=== PATIENT | male | born 1940 | race Caucasian/White ===

== ENCOUNTER → 2018-09-09 | Outpatient (CLI) | payer MEDICARE, BC ==
[~2018-09-09] MED LIST: AMIO200; AMIODARONE; AMIODARONE HCL; AMIODORONE; ASPI325; CYCL10 PO; EZET10-20; HYDACE5 PO; ISODIN20 PO; Isosorbide Dini30 MG; LEVSOD50; LISI20; NAPR550 PO; NITR.6SL SL; OMEP20ER; RISE35; SERT50; SIMV40; TAMS.4ER; [UNRECOGNIZED DRUG - OTHER]
== END | disposition home or self-care (01) ==
LOC: PLD 13:48 → LAB SHORT 13:48
DX: D48.5 Neoplasm of uncertain behavior of skin (principal)
CPT/HCPCS: 88305

== ENCOUNTER 2022-11-22 16:36 | Inpatient (IN) | payer MEDICARE, BC ==
[~2022-11-22] VITALS: Ht 175.3 cm; Wt 80.2 kg
[~2022-11-22 16:36] MED LIST changes: +ASPI81CH PO; +ATOR80 PO; +Amiodarone HCl200 MG PO; +EUTHYROX50 MCG PO; +FURO40 PO; -LEVSOD50; +POTA10T PO
[2022-11-22 16:57] LABS: BASOPHILS ABSOLUTE AUTO 0.03 K/mm3 (0.00-0.23); BASOPHILS PERCENT AUTO 0 % (0-2); EOSINOPHILS PERCENT AUTO 0 % (0-6); Hematocrit 34.4 % (37.0-53.0); Hemoglobin 11.4 g/dL (13.5-17.5); IMMATURE GRAN ABSOLUTE AUTO 0.03 K/mm3 (0.00-0.10); IMMATURE GRAN PERCENT AUTO 0 % (0-1); LYMPHOCYTES ABSOLUTE AUTO 0.77 K/mm3 (0.84-5.20); LYMPHOCYTES PERCENT AUTO 7 % (21-46); MONOCYTES PERCENT AUTO 5 % (4-13); Mean Corpuscular HGB 30.7 pg (26.0-34.0); Mean Corpuscular HGB Conc 33.1 g/dL (31.5-36.5); Mean Corpuscular Volume 93 fL (80-100); Mean Platelet Volume 10.5 fL (9.1-12.4); NEUTROPHILS ABSOLUTE AUTO 9.38 K/mm3 (1.96-9.15); NEUTROPHILS PERCENT AUTO 88 % (41-73); Platelet Count 290 K/mm3 (150-400); RDW Coefficient Variation 14.1 % (11.7-14.2); RDW Standard Deviation 47.6 fL (35.1-46.3); Red Blood Cell Count 3.71 M/mm3 (4.30-5.90); White Blood Cell Count 10.71 K/mm3 (4.00-11.30)
[2022-11-22 17:23] LABS: Albumin, Blood 2.9 g/dL (3.4-5.0); Albumin/Globulin Ratio 0.6 (0.8-1.8); Bilirubin, Total 0.9 mg/dL (0.1-1.0); Bun/Creatinine Ratio 26.7 (12.0-20.0); Calcium, Blood 8.6 mg/dL (8.5-10.1); Creatinine, Blood 1.76 mg/dL (0.60-1.20); Globulin, Blood 4.9 g/dL (2.2-4.0); Potassium, Blood 3.9 mmol/L (3.5-5.5); Total Protein, Blood 7.8 g/dL (6.4-8.2)
[2022-11-22 18:37] LABS: Source, Urine Voided
[2022-11-22 18:40] LABS: Appearance, Urine Cloudy (Clear); Bilirubin, Urine Neg (Neg); Blood, Urine 4+ (Neg); Color, Urine Yellow (P-Yellow); Glucose Qualitative, Urine Neg (Neg); Ketones, Urine Neg (Neg); Leukocyte Esterase, Urine 3+ (Neg); Nitrite, Urine Pos (Neg); Protein, Urine 3+ (Neg); Specific Gravity, Urine 1.015 (1.003-1.022); Urobilinogen, Urine NORM (Normal)
[2022-11-22 18:47] LABS: White Blood Cells, Urine 50-100 /hpf (0-5)
[2022-11-22 18:48] LABS: Bacteria Many /hpf; Squamous Epithelial Cells Not Seen /hpf (Few)
--- NOTE | 2022-11-22 23:30 | NUR ---
PATIENT IS A NEW ADMIT FROM THE ED. AXOX 4 AND THREE PERSON TRANSFER FROM [facility] TO BED. REPORTED WEAK LAST FEW DAYS AND GOT OVER COVID-19 A FEW WEEKS AGO TESTING NEGATIVE. BEDREST. SPOUSE AND DAUGHTER PRESENT ON ADMIT AND STAYED FOR AN HOUR. NAUSEOUS IN ROOM AND IV ZOFRAN GIVEN WITH GOOD EFFECT. DENIES CHEST PAIN AND SOB. ON ROOM AIR. NS STARTED @ 75 mL/HR X ONE BAG. ORIENTED TO ROOM AND CALL LIGHT SYSTEM. REPORTED WANTED TO SLEEP AFTER ASSESSMENT. WCTM.
--- NOTE | 2022-11-23 04:17 | NUR ---
PATIENT HAD LOW GRADE TEMP 99.7 ON ADMIT AND ELEVATED TO 101.2 AND TYLENOL 500 MG GIVEN; 100.4 ON RECHECK. AXOX 4 AND BEDREST. PIV REMAINS INTACT. NS INFUSING AT 75 mL/HR X ONE BAG. DENIES PAIN AND SOB. NAUSEOUS ON ADMIT AND IV ZOFRAN GIVEN WITH GOOD EFFECT. COOPERATIVE WITH CARE. CALL LIGHT IN REACH. BED IN LOWEST POSITION AND ALARM ACTIVATED. WILL CONTINUE TO MONITOR UNTIL DAY SHIFT NURSE ASSUMES CARE.
[2022-11-23 05:35] LABS: BASOPHILS ABSOLUTE AUTO 0.03 K/mm3 (0.00-0.23); BASOPHILS PERCENT AUTO 0 % (0-2); EOSINOPHILS ABSOLUTE AUTO 0.01 K/mm3 (0.00-0.68); EOSINOPHILS PERCENT AUTO 0 % (0-6); Hematocrit 31.5 % (37.0-53.0); Hemoglobin 10.4 g/dL (13.5-17.5); IMMATURE GRAN ABSOLUTE AUTO 0.05 K/mm3 (0.00-0.10); IMMATURE GRAN PERCENT AUTO 1 % (0-1); LYMPHOCYTES PERCENT AUTO 10 % (21-46); MONOCYTES ABSOLUTE AUTO 1.08 K/mm3 (0.16-1.47); MONOCYTES PERCENT AUTO 10 % (4-13); Mean Corpuscular HGB 30.3 pg (26.0-34.0); Mean Corpuscular Volume 92 fL (80-100); Mean Platelet Volume 10.9 fL (9.1-12.4); NEUTROPHILS ABSOLUTE AUTO 8.82 K/mm3 (1.96-9.15); NEUTROPHILS PERCENT AUTO 80 % (41-73); Platelet Count 262 K/mm3 (150-400); RDW Coefficient Variation 13.9 % (11.7-14.2); Red Blood Cell Count 3.43 M/mm3 (4.30-5.90); White Blood Cell Count 11.09 K/mm3 (4.00-11.30)
[2022-11-23 06:15] LABS: Albumin, Blood 2.4 g/dL (3.4-5.0); Anion Gap 6 mmol/L (6-16); Blood Urea Nitrogen 40 mg/dL (8-24); Bun/Creatinine Ratio 28.6 (12.0-20.0); CO2, Blood 23 mmol/L (21-32); Calcium, Blood 7.9 mg/dL (8.5-10.1); Chloride, Blood 105 mmol/L (98-108); Glomerular Filtration Rate 50 (60-); Glucose, Blood 130 mg/dL (70-99); Magnesium, Blood 2.1 mg/dL (1.6-2.4); Phosphorus, Blood 3.1 mg/dL (2.5-4.9); Potassium, Blood 3.9 mmol/L (3.5-5.5); Sodium, Blood 134 mmol/L (136-145); Thyroxine (T4) 13.8 ug/dL (4.5-12.1)
--- NOTE | 2022-11-23 09:00 | NUR ---
pt laying in bed with family at bedside, states he's cold, warm blanket given and turned heat up, pt is a/ox3, pleasant and cooperative with care, lungs are clear dim in bases, on r/a, no cough noted, he reports occ regular phlem, clear, hrr, very distant, no edema noted, ppp+1, cap refill <3sec, vs stable, afebrile, iv site is clear and patent, btx4, abd flat soft nontender, having diff voiding, skin c/w/d, maew, sarai, call light in reach.
--- NOTE | 2022-11-23 10:15 | NUR ---
bladder scanned pt with result of 920mls, did in and out cath drained 900mls turbulant, urine, good amount of white colored urine with strong odor, pt tolerated well, call light in reach.
--- NOTE | 2022-11-23 18:17 | NUR ---
pt having renal u/s, straight cathed him, drained 400mls, not as turbid as this mornings. no further changes, call light in reach.
--- NOTE | 2022-11-24 00:07 | NUR ---
BLADDER SCAN 480 mL WITH 500 mL STRAIGHT CATH OUT. TOLERATED WELL. WCTM.
--- NOTE | 2022-11-24 04:14 | NUR ---
SHIFT SUMMARY PATIENT TEMP 98.1 AT START OF SHIFT AND NOW 100.9, TYLENOL 500 MG GIVEN. AXOX 4 AND INDEPENDENT IN ROOM. DENIES CHEST PAIN, SOB, AND N/V. PIV REMAINS INTACT. IV ABX INFUSED. SLEPT MOST OF SHIFT. CALL LIGHT IN REACH. BED IN LOWEST POSITION. WILL CONTINUE TO MONITOR UNTIL DAY SHIFT NURSE ASSUMES CARE.
--- NOTE | 2022-11-24 05:06 | NUR ---
TEMP 100.9 AND TYLENOL 500 MG GIVEN. TEMP 97.5 ON RECHECK. WCTM
--- NOTE | 2022-11-24 06:33 | NUR ---
BLADDER SCAN 372 mL AND STRAIGHT CATH 375 mL MILD DARK YELLOW URINE.
[2022-11-24] MEDS ORDERED: LISI5 PO (16:52)
[2022-11-24] MEDS ORDERED: Acetaminophen650 M1 PO (16:53)
[2022-11-24] MEDS ORDERED: MIRALAX17 GM PO (16:54)
[2022-11-24] MEDS ORDERED: LACT PO (16:54)
[2022-11-24] MEDS ORDERED: TAMS.4ER PO (16:54)
[2022-11-24] MEDS ORDERED: THERA-D2000 UNIT PO (16:54)
[2022-11-24] MEDS ORDERED: CEFP200 PO (16:55)
--- NOTE | 2022-11-24 18:22 | NUR ---
DDISCHARGE NOTE- PT AND FAMILY WERE GIVEN VERBAL AND WRITTEN DISCHARGE INSTRUCTIONS AND ACKNOWLEDGED UNDERSTANDING OF THEM. PRIOR TO DISCHARGEE THE PT WAS ABLE TO DEMONSTRATE PROPER SELF CATH TECHNIQUE BY PPERFORMING HIS OWN SELF CATH AFTER BLADDER SCAN. PT WAS DISCHARGED HOME WITH HOME HEALTH AND HOME HEALTH SHOULD BE OUT FOR ADMISSION ON SUNDAY. PT IV WAS DC'D PRIOR TO DISCHARGE. PER DISCHARGE INSTRUCTIONS THE PT WAS REFERRED TO [facility] IN [facility]. THE PT AND FAMILY ARE AWARE OF THE CONSULT. THIS RN CALLED THE OFFICE AND THEY REQUESTED INFORMATION FAXED TO THEIR OFFICE. [employer] FAXED THE PT INFO NEEDED FOR THE REFERRAL. THIS RN WAS INSTRUCTED TO TELL THE PT IF THEY HAVE NOT RECIEVED A CALL ON SUNDAY THEY SHOULD CALL ON SUNDAY TO GET SCHEDULED. PROVIDED THE PHONE NUMBER FOR THE PT AND FAMILY TO CALL IF THEY ARENT CONTACTED. PT WAS TAKEN VIA WC ESCORT TO THE PT ENTRANCE, NO S&S OF DISTRESS NOTED AT THE TIME OF DISCHARGE.
== END 2022-11-24 17:59 | disposition hospice, inpatient (51) | DRG 690 ==
LOC: ER 16:36 → MEDS 20:07
PROVIDERS: Emergency Medicine; ADMIT Internal Medicine
PROC: 0T9B70Z Drainage of Bladder with Drainage Device, Via Natural or Artificial Opening (ICD-10-PCS; principal; 2022-11-22)
DX: N13.6 Pyonephrosis (principal); I47.20 Ventricular tachycardia, unspecified; N13.8 Other obstructive and reflux uropathy; N40.1 Benign prostatic hyperplasia with lower urinary tract symptoms; I25.10 Atherosclerotic heart disease of native coronary artery without angina pectoris; N18.30 Chronic kidney disease, stage 3 unspecified; I12.9 Hypertensive chronic kidney disease with stage 1 through stage 4 chronic kidney disease, or unspecified chronic kidney disease; E03.9 Hypothyroidism, unspecified; B96.20 Unspecified Escherichia coli [E. coli] as the cause of diseases classified elsewhere; N39.490 Overflow incontinence; R33.8 Other retention of urine; E78.00 Pure hypercholesterolemia, unspecified; I25.2 Old myocardial infarction; Z86.16 Personal history of COVID-19; Z95.1 Presence of aortocoronary bypass graft; Z98.42 Cataract extraction status, left eye; Z98.41 Cataract extraction status, right eye; Z87.891 Personal history of nicotine dependence; Z79.899 Other long term (current) drug therapy
CPT/HCPCS: 36415; 51702; 71046; 76770; 80053; 80069; 81001; 83735; 83880; 84436; 84484; 85025; 87077; 87086; 87186; 93005; 93010; 96374-59; 97110; 97161; 99285-25; A9270; J0696; J2405; J7030

== ENCOUNTER 2022-12-03 07:34 | Emergency (ER) | payer MEDICARE, BC ==
[~2022-12-03] VITALS: Ht 175.3 cm; Wt 83.9 kg
[~2022-12-03 07:34] MED LIST changes: +Acetaminophen650 M1 PO; +CEFP200 PO; +LACT PO; +LISI5 PO; +MIRALAX17 GM PO; +TAMS.4ER PO; +THERA-D2000 UNIT PO
[2022-12-03] MEDS ORDERED: FUROSEMIDE40 MG PO (07:46)
[2022-12-03 08:16] LABS: BASOPHILS ABSOLUTE AUTO 0.05 K/mm3 (0.00-0.23); BASOPHILS PERCENT AUTO 0 % (0-2); EOSINOPHILS ABSOLUTE AUTO 0.27 K/mm3 (0.00-0.68); EOSINOPHILS PERCENT AUTO 2 % (0-6); Hemoglobin 11.1 g/dL (13.5-17.5); IMMATURE GRAN ABSOLUTE AUTO 0.04 K/mm3 (0.00-0.10); IMMATURE GRAN PERCENT AUTO 0 % (0-1); LYMPHOCYTES ABSOLUTE AUTO 2.23 K/mm3 (0.84-5.20); LYMPHOCYTES PERCENT AUTO 19 % (21-46); MONOCYTES PERCENT AUTO 6 % (4-13); Mean Corpuscular HGB 30.1 pg (26.0-34.0); Mean Corpuscular HGB Conc 32.6 g/dL (31.5-36.5); Mean Corpuscular Volume 92 fL (80-100); Mean Platelet Volume 9.6 fL (9.1-12.4); NEUTROPHILS ABSOLUTE AUTO 8.41 K/mm3 (1.96-9.15); NEUTROPHILS PERCENT AUTO 72 % (41-73); Platelet Count 284 K/mm3 (150-400); RDW Coefficient Variation 14.5 % (11.7-14.2); RDW Standard Deviation 49.1 fL (35.1-46.3); Red Blood Cell Count 3.69 M/mm3 (4.30-5.90)
[2022-12-03 08:35] LABS: Magnesium, Blood 2.3 mg/dL (1.6-2.4)
[2022-12-03 08:36] LABS: Albumin, Blood 2.8 g/dL (3.4-5.0); Albumin/Globulin Ratio 0.6 (0.8-1.8); Bilirubin, Total 0.5 mg/dL (0.1-1.0); Bun/Creatinine Ratio 18.5 (12.0-20.0); Calcium, Blood 8.9 mg/dL (8.5-10.1); Creatinine, Blood 0.92 mg/dL (0.60-1.20); Globulin, Blood 4.7 g/dL (2.2-4.0); Potassium, Blood 3.7 mmol/L (3.5-5.5); Total Protein, Blood 7.5 g/dL (6.4-8.2)
[2022-12-03 10:09] LABS: Source, Urine Clean Catch
[2022-12-03 10:13] LABS: Bilirubin, Urine Neg (Neg); Blood, Urine 1+ (Neg); Glucose Qualitative, Urine Neg (Neg); Ketones, Urine Neg (Neg); Leukocyte Esterase, Urine 1+ (Neg); Nitrite, Urine Neg (Neg); Protein, Urine Neg (Neg); Urobilinogen, Urine NORM (Normal)
[2022-12-03 10:27] LABS: Appearance, Urine Clear (Clear); Color, Urine Yellow (P-Yellow)
[2022-12-03 10:34] LABS: Bacteria Rare /hpf; Red Blood Cells, Urine 0-2 /hpf (0-2); Squamous Epithelial Cells Few /hpf (Few)
[2022-12-03] MEDS ORDERED: FURO20 PO (11:06)
[2022-12-03] MEDS ORDERED: ONDA4ODT MM (11:51)
== END 2022-12-03 12:11 | disposition home or self-care (01) ==
LOC: ER 07:34
PROVIDERS: Emergency Medicine
DX: S92.354A Nondisplaced fracture of fifth metatarsal bone, right foot, initial encounter for closed fracture (principal); W19.XXXA Unspecified fall, initial encounter; I87.2 Venous insufficiency (chronic) (peripheral); K52.9 Noninfective gastroenteritis and colitis, unspecified; I10 Essential (primary) hypertension; I25.10 Atherosclerotic heart disease of native coronary artery without angina pectoris; Z95.0 Presence of cardiac pacemaker; Z87.891 Personal history of nicotine dependence
CPT/HCPCS: 36415; 51701; 71045; 73630; 74177; 80053; 81001; 83605; 83690; 83735; 84484; 85025; 87086; 93005; 93010; 96365-59; 96366-59; 96375-59; 99284-25; J2405; J3475; Q9967

== ENCOUNTER → 2023-04-23 | Outpatient (CLI) | payer MEDICARE, BC ==
[~2023-04-23] MED LIST changes: +FURO20 PO; +FUROSEMIDE40 MG PO; +ONDA4ODT MM
[2023-04-23 16:54] LABS: Source, Urine Voided
[2023-04-23 20:13] LABS: Red Blood Cells, Urine 25-50 /hpf (0-2); Squamous Epithelial Cells Rare /hpf (Few); White Blood Cells, Urine TNTC /hpf (0-5)
[2023-04-23 20:14] LABS: Bacteria Mod /hpf
== END | disposition home or self-care (01) ==
LOC: LAB 16:53 → LAB SHORT 16:53
PROVIDERS: Internal Medicine Hematology & Oncology
DX: R30.0 Dysuria (principal)
CPT/HCPCS: 81015

== ENCOUNTER → 2023-05-08 | Outpatient (CLI) | payer MEDICARE, BC ==
[2023-05-08 15:32] LABS: Source, Urine Voided
[2023-05-08 16:48] LABS: Appearance, Urine Clear (Clear); Bilirubin, Urine Neg (Neg); Blood, Urine Neg (Neg); Color, Urine Yellow (P-Yellow); Glucose Qualitative, Urine Neg (Neg); Ketones, Urine Neg (Neg); Leukocyte Esterase, Urine Neg (Neg); Nitrite, Urine Neg (Neg); Protein, Urine Neg (Neg); Urobilinogen, Urine NORM (Normal)
== END | disposition home or self-care (01) ==
LOC: LAB SHORT 12:00 → LAB 12:00
PROVIDERS: Internal Medicine Hematology & Oncology
DX: N39.0 Urinary tract infection, site not specified (principal); N40.0 Benign prostatic hyperplasia without lower urinary tract symptoms
CPT/HCPCS: 81003; 87086

== ENCOUNTER → 2023-06-27 | Outpatient (CLI) | payer MEDICARE, BC ==
[2023-06-27 15:21] LABS: Source, Urine Voided
[2023-06-27 17:28] LABS: Appearance, Urine Hazy (Clear); Bilirubin, Urine Neg (Neg); Blood, Urine 1+ (Neg); Glucose Qualitative, Urine Neg (Neg); Ketones, Urine Neg (Neg); Leukocyte Esterase, Urine 2+ (Neg); Nitrite, Urine Neg (Neg); Protein, Urine 1+ (Neg); Urobilinogen, Urine NORM (Normal)
[2023-06-27 17:40] LABS: Color, Urine Pale Yellow (P-Yellow)
[2023-06-27 17:42] LABS: Red Blood Cells, Urine 0-2 /hpf (0-2); White Blood Cells, Urine TNTC /hpf (0-5)
[2023-06-27 17:43] LABS: Bacteria Mod /hpf; Squamous Epithelial Cells Not Seen /hpf (Few)
== END | disposition home or self-care (01) ==
LOC: LAB 14:30 → LAB SHORT 14:30
PROVIDERS: Internal Medicine Hematology & Oncology
DX: R30.0 Dysuria (principal)
CPT/HCPCS: 81001; 87077; 87086; 87186

== ENCOUNTER → 2023-08-06 | Outpatient (CLI) | payer MEDICARE, BC ==
[2023-08-06 18:51] LABS: Source, Urine Clean Catch
[2023-08-06 20:00] LABS: Bacteria Many /hpf; Red Blood Cells, Urine 0-2 /hpf (0-2); Squamous Epithelial Cells Rare /hpf (Few); White Blood Cells, Urine TNTC /hpf (0-5)
== END | disposition home or self-care (01) ==
LOC: LAB SHORT 18:48 → LAB 18:48
PROVIDERS: Internal Medicine Hematology & Oncology
DX: R30.0 Dysuria (principal)
CPT/HCPCS: 81015

== ENCOUNTER → 2024-01-07 | Outpatient (CLI) | payer MEDICARE, BC | END | disposition home or self-care (01) | LOC: LAB SHORT 14:45 → LAB 14:45 | DX: R30.0 Dysuria (principal) ==

== ENCOUNTER → 2025-01-21 | Outpatient (CLI) | payer MEDICARE, BC | LOC: LAB SHORT 08:37 → LAB 08:37 | DX: I10 Essential (primary) hypertension (principal); I25.10 Atherosclerotic heart disease of native coronary artery without angina pectoris; M54.9 Dorsalgia, unspecified; R30.0 Dysuria | CPT/HCPCS: 87077; 87086; 87186 ==